=== PATIENT | female | born 1975 | race Two or more races ===

== ENCOUNTER 2024-03-25 17:44 | Emergency (ER) | payer OTHER ==
[~2024-03-25] VITALS: Ht 165.1 cm; Wt 65.0 kg
[2024-03-25 18:00] VITALS: O2SAT 99
[2024-03-25 18:21] VITALS: BP 145/83; PULSE 100; RESP 18; TEMP 98.5; O2SAT 99
[2024-03-25 19:54] LABS: BASOPHILS % 0.6 % (0.0-2.0); EOSINOPHILS % 0.8 % (0.0-5.0); HEMATOCRIT. 42.9 % (36.0-48.0); HEMOGLOBIN. 13.7 g/dL (12.0-16.0); LYMPHOCYTES % 27.8 % (20.0-50.0); MEAN CORPUSCULAR HEMOGLOBIN 25.7 pg (28.0-32.0); MEAN CORPUSCULAR HGB CONC 32.1 g/dL (31.0-37.0); MEAN CORPUSCULAR VOLUME 80.1 fL (81.0-99.0); MEAN PLATELET VOLUME 7.1 fl (7.4-10.4); MONOCYTES % 6.9 % (2.0-8.0); NEUTROPHILS % 63.9 % (40.0-76.0); PLATELET 365 x1000/uL (130-400); RED BLOOD CELL COUNT 5.35 mill/uL (4.2-5.4); RED CELL DISTRIBUTION WIDTH 15.3 % (11.6-14.6); WHITE BLOOD COUNT 9.5 x1000/uL (4.5-11.0)
[2024-03-25 19:59] LABS: CHLORIDE 95 mEq/L (98-107); POTASSIUM 3.8 mEq/L (3.5-5.1); SODIUM 131 mEq/L (136-145)
[2024-03-25 20:00] LABS: CALCIUM 9.7 mg/dL (8.7-10.4); CARBON DIOXIDE 26 mEq/L (21-32)
[2024-03-25 20:05] LABS: CREATININE 0.9 mg/dL (0.6-1.0); UREA NITROGEN BLOOD 12 mg/dL (9-23)
[2024-03-25 20:12] LABS: GLUCOSE 402 mg/dL (70-105)
== END 2024-03-25 20:57 | disposition left against medical advice (07) ==
LOC: ER 17:44
DX: E11.65 Type 2 diabetes mellitus with hyperglycemia (principal); Z53.21 Procedure and treatment not carried out due to patient leaving prior to being seen by health care provider
CPT/HCPCS: 36415; 80048; 82962; 85025